=== PATIENT | male | born 1965 | race Caucasian/White ===

== ENCOUNTER 2018-06-11 07:03 | Day surgery (SDC) | payer BC, OTHER ==
[2018-06-11 07:44] VITALS: BMI 26.3
--- NOTE | 2018-06-11 08:22 | HP ---
Satellite H - Chief Complaint Chief Complaint: left shoulder pain - Past Medical History Allergies/Adverse Reactions: Allergies Allergy/AdvReac Type Severity Reaction Status Date / Time aspirin Allergy Severe Rash Verified 06/11/18 07:36 - Current Medications Current Medications: Home Medications Medication Instructions Recorded Fluticasone/Salmeterol [Advair 1 each IH PRN PRN 06/11/18 250-50 Diskus] Omeprazole 20 mg PO PRN PRN 06/11/18 Oxycodone HCl/Acetaminophen 1 - 2 tab PO Q6H #30 tab MDD 6 06/11/18 [Percocet 5-325 mg Tablet] Simvastatin 40 mg PO DAILY 06/11/18 Satellite Physical Exam - Physical Examination Vital Signs: Vital Signs Period Temp Pulse Resp BP Sys/Greene Pulse Ox Last 24 Hr 97.8 F 90 18 129/96 96 General Appearance: Well Nourished, Well Developed, Alert & Oriented x3 ENT: Clear Lung: Normal air movement Heart: Regular rate & rhythm Extremities: Other (left shoulder- + ttp, decr rom, + neer, + ocampo, +/- empty can, nvi MRi + impingement, +rct) Neurological: Intact, Alert, Oriented Satellite Impression/Plan - Impression/Plan Impression: left shoulder internal derangement Operative Procedure: left shoulder arthroscopy with SAD and possible RCR Date to be Performed: 06/11/18
[2018-06-11] MEDS ORDERED: DEXAMETHASONE SOD PHOSPHATE/PF 10 MG/ML SDV ONE (08:24)
[2018-06-11] MEDS ORDERED: BUPIVACAINE HCL/PF 0.5% (5MG/ML) 10 ML VIAL ONE ×2 (08:25→09:34)
[2018-06-11] MEDS ORDERED: MIDAZOLAM HCL 2 MG/2 ML SINGLE DOSE VIAL ONE ×2 (08:26)
[2018-06-11] MEDS ORDERED: ONDANSETRON 4 MG/2 ML VIAL IVPUSH PRN (08:32)
[2018-06-11] MEDS ORDERED: oxyCODONE HCL 5 MG TABLET PO PRN ×2 (08:32)
[2018-06-11] MEDS ORDERED: LACTATED RINGERS SOLUTION 1,000 ML IV SCH (08:45)
[2018-06-11] MEDS ORDERED: PROPOFOL 20 ML ONE (08:48)
[2018-06-11] MEDS ORDERED: DEXAMETHASONE SOD PHOSPHATE 4 MG/1 ML VIAL ONE (08:51)
[2018-06-11] MEDS ORDERED: LIDOCAINE HCL/PF 2% SDV 5ML VIAL ONE (08:51)
[2018-06-11] MEDS ORDERED: ceFAZolin SODIUM 1 GM VIAL IVPB ONE (09:42)
[2018-06-11] MEDS ORDERED: ceFAZolin SODIUM 1 GM VIAL ONE (09:47)
--- NOTE | 2018-06-11 10:45 | OP ---
Operative Note - Note: Operative Date: 06/11/18 ([facility]) Pre-Operative Diagnosis: left shoulder impingement Operation: left shoulder arthroscopy with SAD Post-Operative Diagnosis: Same as Pre-op Surgeon: Sathish Mercado Arch Support Maker: Dat Vera Anesthesiologist/EARLY HEAD START DIRECTOR: Mati Ryan Anesthesia: General, Local Specimens Removed: shavings Estimated Blood Loss (mls): 10 Operative Report Dictated: Yes
--- NOTE | 2018-06-11 13:47 | OP ---
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 PROCEDURE: Left shoulder arthroscopy, subacromial decompression and distal clavicle excision. SURGEON: Gianluca Kam MD [employer] ADVISORS: Sathish Mercado MD [facility] [employer] ADVISORS: VALENCIA Handley SAMPLE MOUNTER: Mati Ryan CRNA ANESTHESIA: Left interscalene block with LMA anesthesia. DRAINS: None. COMPLICATIONS: None. BLOOD LOSS: Minimal. BLOOD GIVEN: None. FLUID REPLACEMENT: 1000 mL. This patient is a 53-year-old male with a preoperative diagnosis of severe recurrent left shoulder impingement syndrome. After understanding the potential risks, complications, alternatives and benefits of surgical versus nonsurgical treatment the patient elected to undergo this procedure. He was brought to the operating room. Peripheral IV placed. Adequate sedation given. One gram of IV Ancef was given. A left interscalene block was performed. LMA anesthesia was induced. He was placed into the beach-chair position with elbow padded throughout. The left upper extremity was prepped and draped per sterile fashion. The bony landmarks were marked out with a marking pen. A posterior portal was established with a No. 15 scalpel blade and the arthroscope introduced into the glenohumeral joint. A glenohumeral diagnostic arthroscopy was performed. The intraarticular aspect of the joint looked good. There was no osteoarthritis. The glenoid and humeral head looked good and the undersurface of the rotator cuff had a very small amount of fraying. The glenoid labrum also had a very small amount of fraying but otherwise looked good and stable. The biceps tendon looked good. Next our attention then turned to the subacromial space. A lateral portal was established with a spinal needle and No. 15 scalpel blade. A Green cannula was introduced into the joint. Patient had a tremendous amount of inflammatory bursitis. The ArthroCare wand was used to do a soft tissue bursectomy. This revealed a large subacromial and a moderate-sized subclavicular spur. The 2 spurs were taken down with a 5.5-mm oval bur first in forward, then in reverse to fine tune it and then with a straight shaver to fine tune it further and to remove all debris. The __ ___ of the rotator cuff was directly visualized and seen to have no tear and looked to be completely intact. All the other structures were directly visualized. They were seen to look quite good. The was copiously irrigated and washed out. All instrumentation, excess saline and debris were removed. The arthroscopy portals were closed with 3-0 nylon sutures, then washed and dried, covered with Aquacel dressing and put into a regular sling. The patient was extubated and brought to the regular recovery room in stable condition. Total operative time was about 50 minutes. GIANLUCA KAM M.D. [id number] MTDD
[2018-06-11 17:58] VITALS: BP 127/88; PULSE 87; TEMP 98.2
--- NOTE | 2018-06-12 16:45 | PATH ---
Surgical Pathology Report Patient Name: CURTIS GUIDRY Med. Rec. #: [id number] /Age/Gender: 1965 (Age: 53) / M Account: [id number] Location: [facility] SURGICAL Taken: 06/11/2018 Received: 06/11/2018 Reported: 06/12/2018 Physicians: Feng Echevarria M.D. Specimen(s) Received LEFT SHOULDER SHAVINGS Clinical History Left shoulder tear Final Diagnosis SHOULDER SHAVINGS, LEFT, ARTHROSCOPY, SUBACROMIAL DECOMPRESSION, DISTAL CLAVICLE EXCISION: FRAGMENTS OF BENIGN CARTILAGE, DENSE FIBROCONNECTIVE TISSUE, ADIPOSE TISSUE, AND SKELETAL MUSCLE. Electronically Signed Alyssia Brand M.D. Gross Description Received in formalin, labeled "left shoulder shavings," is a 4.3 x 3.5 x 0.6 cm. aggregate of chun-yellow soft tissue fragments. A textile designs sales representative portion is submitted in one cassette. 06/11/201806/11/2018
== END 2018-06-11 13:00 | disposition home or self-care (01) ==
LOC: JASU-SURG 07:03
PROVIDERS: ATTEND Orthopaedic Surgery
PROC: 0PBB4ZZ Excision of Left Clavicle, Percutaneous Endoscopic Approach (ICD-10-PCS; 2018-06-11)
PROC: 0RBK4ZZ Excision of Left Shoulder Joint, Percutaneous Endoscopic Approach (ICD-10-PCS; principal; 2018-06-11 09:00)
DX: M75.42 Impingement syndrome of left shoulder (principal); M19.012 Primary osteoarthritis, left shoulder
CPT/HCPCS: 88304-TC; 94760